=== PATIENT | female | born 1950 | race Caucasian/White ===

== ENCOUNTER 2023-02-06 15:38 | Day surgery (SDC) | payer MEDICARE ==
[2023-02-06] MEDS ORDERED: BUPIVACAINE 0.5% VIAL IJ ONE (15:39)
[2023-02-06] MEDS ORDERED: Depo-Medrol 40 MG/ML IM ONE (15:39)
[2023-02-06] MEDS ORDERED: DIPRIVAN 200 MG/20 ML IV ONE (16:51)
[2023-02-06] MEDS ORDERED: Lactated Ringers 1,000 ML IV ONE (17:09)
--- NOTE | 2023-02-06 18:57 | XRAY ---
Indication: Right hip and greater trochanter bursa injection. Intraoperative fluoroscopy provided for 26 seconds. 3 digital spot image submitted for interpretation demonstrates needle tip projecting lateral to right femur neck. Second needle tip lateral to greater trochanter. Small amount of contrast injected for both needle tip placement. Correlate with intraoperative findings/report.
--- NOTE | 2023-02-07 09:48 | XRAY ---
26 seconds of fluoroscopy was used in surgery for a right intra-articular hip and right greater trochanteric bursa injection.
== END 2023-02-06 17:19 | disposition home or self-care (01) ==
LOC: SDC-PAIN 15:38
PROVIDERS: ATTEND Psychiatry & Neurology Pain Medicine
DX: M16.11 Unilateral primary osteoarthritis, right hip (principal); Z79.899 Other long term (current) drug therapy; M70.61 Trochanteric bursitis, right hip
CPT/HCPCS: 20610; 73502; 77002; 82947; J1030; J2704; Q9966

== ENCOUNTER 2023-03-20 08:52 | Day surgery (SDC) | payer MEDICARE ==
[2023-03-20] MEDS ORDERED: LIDOCAINE HCL 2% 100 MG/5 ML IJ ONE (08:53)
[2023-03-20] MEDS ORDERED: DIPRIVAN 200 MG/20 ML IV ONE (10:45)
--- NOTE | 2023-03-20 11:59 | XRAY ---
Indication: Bilateral L4-S1 MBB. Intraoperative fluoroscopy provided for 11 seconds. Single digital spot image submitted for interpretation demonstrates posterior needle tips projecting over the expected left and right L4-S1 nerve roots. Correlate with intraoperative findings/report.
--- NOTE | 2023-03-20 12:08 | XRAY ---
11 seconds of fluoroscopy was used in surgery for a bilateral L4-S1 MBB.
[2023-03-20] MEDS ORDERED: Lactated Ringers 1,000 ML IV ONE (12:44)
== END 2023-03-20 11:10 | disposition home or self-care (01) ==
LOC: SDC-PAIN 08:52
PROVIDERS: ATTEND Psychiatry & Neurology Pain Medicine
DX: M47.816 Spondylosis without myelopathy or radiculopathy, lumbar region (principal); Z79.899 Other long term (current) drug therapy
CPT/HCPCS: 64493; 64494; 72020; 77002; 82947; J2704

== ENCOUNTER 2023-05-01 09:25 | Day surgery (SDC) | payer MEDICARE ==
[2023-05-01] MEDS ORDERED: BUPIVACAINE 0.5% VIAL IJ ONE (09:26)
[2023-05-01] MEDS ORDERED: Depo-Medrol 40 MG/ML IM ONE (09:26)
[2023-05-01] MEDS ORDERED: DIPRIVAN 200 MG/20 ML IV ONE (10:48)
--- NOTE | 2023-05-01 12:50 | XRAY ---
Indication: Bilateral L4-S1 MBB. Intraoperative fluoroscopy provided for 10 seconds. Single digital spot image submitted for interpretation demonstrates posterior needle tips projecting over the expected left and right L4-S1 nerve roots. Correlate with intraoperative findings/report.
[2023-05-01] MEDS ORDERED: Lactated Ringers 1,000 ML IV ONE (14:09)
--- NOTE | 2023-05-01 16:46 | XRAY ---
10 seconds of fluoroscopy was used in surgery for a bilateral L4-S1 MBB.
== END 2023-05-01 11:20 | disposition home or self-care (01) ==
LOC: SDC-PAIN 09:25
PROVIDERS: ATTEND Psychiatry & Neurology Pain Medicine
DX: M47.816 Spondylosis without myelopathy or radiculopathy, lumbar region (principal); Z79.899 Other long term (current) drug therapy
CPT/HCPCS: 64493; 64494; 72020; 77002; 82947; J1030; J2704

== ENCOUNTER 2024-04-22 09:53 | Day surgery (SDC) | payer MEDICARE ==
[2024-04-22] MEDS ORDERED: LIDOCAINE HCL 1% 50 MG/5 ML VL PF IJ ONE (09:54)
[2024-04-22] MEDS ORDERED: Depo-Medrol 40 MG/ML IM ONE (09:54)
[2024-04-22] MEDS ORDERED: BUPIVACAINE 0.5% VIAL IJ ONE (09:54)
[2024-04-22] MEDS ORDERED: Lactated Ringers 1,000 ML IV ONE (11:58)
--- NOTE | 2024-04-22 14:25 | XRAY ---
Indication: Right L4-S1 RFA. Intraoperative fluoroscopy provided for 28 seconds. 4 digital spot image submitted for interpretation demonstrates posterior needle tips projecting over expected right L4-S1 nerve roots. Correlate with intraoperative findings/report.
--- NOTE | 2024-04-22 14:37 | XRAY ---
28 seconds of fluoroscopy was used in surgery for a right L4-S1 RFA.
== END 2024-04-22 12:06 | disposition home or self-care (01) ==
LOC: SDC-PAIN 09:53
PROVIDERS: ATTEND Psychiatry & Neurology Pain Medicine
DX: M47.816 Spondylosis without myelopathy or radiculopathy, lumbar region (principal); E11.9 Type 2 diabetes mellitus without complications
CPT/HCPCS: 64635; 64636; 72100; 77002; 82947; J2001

== ENCOUNTER 2024-04-29 09:09 | Day surgery (SDC) | payer MEDICARE ==
[2024-04-29] MEDS ORDERED: BUPIVACAINE 0.5% VIAL IJ ONE (09:10)
[2024-04-29] MEDS ORDERED: LIDOCAINE HCL 1% 50 MG/5 ML VL PF IJ ONE (09:10)
[2024-04-29] MEDS ORDERED: Depo-Medrol 40 MG/ML IM ONE (09:10)
[2024-04-29] MEDS ORDERED: Lactated Ringers 1,000 ML IV ONE (12:10)
--- NOTE | 2024-04-29 13:05 | XRAY ---
Indication: Left L4-S1 RFA. Intraoperative fluoroscopy provided for 22 seconds. 4 digital spot images submitted for interpretation demonstrates posterior needle tips projecting over the expected left L4-S1 nerve roots. Correlate with intraoperative findings/report.
== END 2024-04-29 11:00 | disposition home or self-care (01) ==
LOC: SDC-PAIN 09:09
PROVIDERS: ATTEND Psychiatry & Neurology Pain Medicine
DX: M47.816 Spondylosis without myelopathy or radiculopathy, lumbar region (principal); E11.9 Type 2 diabetes mellitus without complications
CPT/HCPCS: 64635; 64636; 72100; 82947; J2001